=== PATIENT | female | born 2000 | race African-American/Black ===

== ENCOUNTER 2020-06-30 10:49 | Emergency (ER) | payer OTHER ==
[~2020-06-30] VITALS: Ht 157.5 cm; Wt 63.5 kg
[2020-06-30 11:34] LABS: ABSOLUTE NEUTROPHILS 5.5 thou/uL (1.4-8.2); BASOPHILS 0.3 % (0.0-2.0); EOSINOPHILS 1.4 % (0.0-3.0); HEMATOCRIT 39.7 % (37.0-47.0); HEMOGLOBIN 13.3 gm/dL (12.0-15.0); LYMPHOCYTES 24.8 % (24.0-44.0); MCH 33.4 pg (26.0-34.0); MCHC 33.6 g/dL (28.0-37.0); MCV 99.4 fL (80.0-100.0); MONOCYTES 5.6 % (1.0-8.0); PLATELET COUNT 224 thou/uL (150-400); POLYS 67.9 % (36.0-66.0); RBC 3.99 mil/uL (4.20-5.00); RDW 12.5 % (10.5-14.5); WBC 8.1 thou/uL (4.0-11.0)
[2020-06-30 11:38] LABS: CALCIUM 9.2 mg/dL (8.5-10.1); CREATININE 0.8 mg/dL (0.6-1.0); POTASSIUM 3.5 mmol/L (3.5-5.1)
[2020-06-30 11:44] LABS: TOTAL BILIRUBIN 0.5 mg/dL (0.2-1.0); TOTAL PROTEIN 7.8 g/dL (6.4-8.2)
[2020-06-30 12:48] VITALS: BP 123/80
[2020-06-30 13:00] LABS: LARGE PLATELETS FEW
== END 2020-06-30 12:45 | disposition home or self-care (01) ==
LOC: ER 10:49
PROVIDERS: Emergency Medicine
DX: N83.202 Unspecified ovarian cyst, left side (principal)